=== PATIENT | female | born 1955 | race African-American/Black ===

== ENCOUNTER 2020-08-26 08:12 | Day surgery (SDC) | payer OTHER ==
[2020-08-19 14:55] VITALS: BMI 52.1
[2020-08-26 10:03] VITALS: BP 123/76; PULSE 55; TEMP 98
== END 2020-08-26 10:03 | disposition home or self-care (01) ==
LOC: FASU-ENDO 08:12
PROVIDERS: ATTEND Internal Medicine Gastroenterology
PROC: 0DJD8ZZ Inspection of Lower Intestinal Tract, Via Natural or Artificial Opening Endoscopic (ICD-10-PCS; principal; 2020-08-26 08:52)
DX: Z12.11 Encounter for screening for malignant neoplasm of colon (principal); K57.30 Diverticulosis of large intestine without perforation or abscess without bleeding